=== PATIENT | female | born 1965 | race Caucasian/White ===

== ENCOUNTER 2017-05-12 20:18 | Emergency (ER) | payer BC ==
[2017-05-12] MEDS ORDERED: Sodium Chloride 0.9% 10 ML Syringe FLUSH PRN (22:01)
[2017-05-12] MEDS ORDERED: Sodium Chloride 0.9% 1,000 ML IV SCH (22:15)
--- NOTE | 2017-05-13 00:26 | EDM.PDOC ---
ED HPI GENERAL MEDICAL PROBLEM - General Chief Complaint: Fever Stated Complaint: FEVER HEART ISSUES CANCER PT Time Seen by Provider: 05/12/17 21:03 Source of Information: Reports: Patient, Other (Dr. Berman) History Limitations: Reports: No Limitations - History of Present Illness INITIAL COMMENTS - FREE TEXT/NARRATIVE: Dr. Berman called prior to arrival of this patient. She is a 52-year-old white female with history of metastatic carcinoid tumor. She is receiving treatment with some kind of injections and I didn't get the name of the infusion she is receiving. The patient's history is that for the past few hours she's had fever and shaking. She did get a flu shot at the end of December. So it's a little over 3 months since that an injection she denies vomiting but she's had lots of diarrhea and lots of gas. She feels like she may be dehydrated she denies cough or sore throat. She denies urinary symptoms she said she had full labs yesterday but was not having any symptoms then. She saw her oncologist yesterday. Today she second 3 Imodium tablets she says that since 7:30 PM she hasn't had anymore diarrhea. She did mention that she has had a lot of scans in the past I assume she mentioned CTs and MRIs and so forth she was worried about getting a chest x-ray and I told her that a regular chest x-ray does not carry much radiation exposure. This dictation is based on my personal notes taken at time of service. - Related Data Allergies Allergy/AdvReac Type Severity Reaction Status Date / Time azithromycin Allergy Hives Verified 05/12/17 21:20 benzonatate Allergy Hives Verified 05/12/17 21:20 [From Quinn Walker] lisinopril Allergy Cough Verified 05/12/17 21:22 Home Meds: Home Meds Hydrochlorothiazide 05/12/17 [History] Loratadine 05/12/17 [History] Losartan [Cozaar] 05/12/17 [History] Potassium Chloride 05/12/17 [History] Prochlorperazine Maleate [Compazine] 05/12/17 [History] Vit D3/Folic Acid/B2/B6/B12 [Folgard Tablet] 05/12/17 [History] Past Medical History Oncologic (Cancer) History: Reports: Other (See Below) - Past Surgical History Female Surgical History: Reports: Section, Tubal Ligation Social & Family History - Tobacco Use Smoking Status *Q: Never Smoker ED ROS GENERAL - Review of Systems Review Of Systems: Unable To Obtain (Review of systems was covered in the history of present illness) ED EXAM, SEPSIS - Physical Exam Exam: See Below Exam Limited By: No Limitations General Appearance: Alert, WD/WN, No Apparent Distress Eye Exam: Bilateral Eye: Normal Inspection Throat/Mouth: Normal Oropharynx Head: Atraumatic Neck: Normal Inspection Respiratory/Chest: Lungs Clear Cardiovascular: Normal Peripheral Pulses, Regular Rate, Rhythm GI/Abdominal Exam: Non-Tender Back: Normal Inspection Extremities: Normal Inspection Neurological: Alert, Oriented Psychiatric: Normal Affect Skin: Warm, Dry Course - Vital Signs Last Recorded V/S: Last Vital Signs Temp 37.9 C 05/12/17 21:32 Pulse 90 05/12/17 21:32 Resp 19 05/12/17 21:32 BP 133/78 05/12/17 21:32 Pulse Ox 97 05/12/17 21:32 - Orders/Labs/Meds Labs: Laboratory Tests 05/12/17 05/12/17 05/12/17 Range/Units 22:16 22:16 22:35 WBC 16.0 H (4.5-11.0) K/uL RBC 4.92 (3.30-5.50) M/uL Hgb 14.3 (12.0-15.0) g/dL Hct 41.9 (36.0-48.0) % MCV 85 (80-98) fL MCH 29 (27-31) pg MCHC 34 (32-36) % Plt Count 176 (150-400) K/uL Neut % (Auto) 92 H (36-66) % Lymph % (Auto) 3 L (24-44) % [place] % (Auto) 5 (2-6) % Eos % (Auto) 0 L (2-4) % Baso % (Auto) 0 (0-1) % Sodium 138 L (140-148) mmol/L Potassium 3.0 L (3.6-5.2) mmol/L Chloride 102 (100-108) mmol/L Carbon Dioxide 27 (21-32) mmol/L Anion Gap 12.0 (5.0-14.0) mmol/L BUN 16 (7-18) mg/dL Creatinine 1.2 H (0.6-1.0) mg/dL Est Cr Clr Drug Dosing 41.85 mL/min Estimated GFR (MDRD) 47 L (>60) Glucose 162 H (74-106) mg/dL Calcium 8.6 (8.5-10.1) mg/dL Urine Color Other Urine Appearance Cloudy Urine pH 5.0 (4.5-8.0) Ur Specific [place] 1.010 (1.008-1.030) Urine Protein Trace (NEGATIVE) mg/dL Urine Glucose (UA) Normal (NEGATIVE) mg/dL Urine Ketones Negative (NEGATIVE) mg/dL Urine Occult Blood Large (NEGATIVE) Urine Nitrite Negative (NEGATIVE) Urine Bilirubin Small (NEGATIVE) Urine Urobilinogen Normal (NORMAL) mg/dL Ur Leukocyte Esterase Negative (NEGATIVE) Urine RBC Packed H (0-5) Urine WBC 0-5 (0-5) Ur Epithelial Cells Few Amorphous Sediment Not seen Urine Bacteria Not seen Urine Mucus Not seen Meds: Medications Discontinued Medications Generic Name Dose Route Start Last Admin Trade Name Freq PRN Reason Stop Dose Admin Sodium Chloride 1,000 mls @ 999 mls/hr 05/12/17 22:15 05/12/17 22:29 Normal Saline IV 999 mls/hr ASDIRECTED DOUG Administration Sodium Chloride 10 ml 05/12/17 22:01 05/12/17 22:29 Saline Flush FLUSH 10 ml ASDIRECTED PRN Administration Keep Vein Open - Re-Assessments/Exams Free Text/Narrative Re-Assessment/Exam: 05/14/17 06:16 This patient received 1 L IV normal saline. Labs were reviewed with the patient. Chest x-ray showed no signs of infiltrate. The influenza test is negative and it was an antigen test. Patient stated that she doesn't feel like she has the flu since she's not having any kind of body aches or upper respiratory type symptoms. I mentioned this because the antigen test we did has a high false-negative rate and I would consider treating an immunocompromised person with Tamiflu regardless of the negative flu test. She pointed out that she is not receiving chemotherapy that the infusion is a different type of treatment. Again I don't have the name of the infusion she's receiving. Her white blood cell count is elevated but there is some left shift to it but I don' t see any bands. She's feeling much better at the time of discharge. She agrees that if she gets worse over the next 2448 hrs. that she will seek care.. 05/14/17 06:18 Departure - Departure Time of Disposition: 00:24 Disposition: Home, Self-Care 01 Condition: Fair Clinical Impression: Diarrhea, Carcinoid tumor - Discharge Information Instructions: Diarrhea, Adult Referrals: Beck Arambula MD [Primary Care Provider] - Forms: ED Department Discharge Additional Instructions: Continue clear liquids for the next 24 hours. Then slowly advanced back to your previous diet. If you feel like you're getting worse such as running a fever and body aches and so forth then you need to be seen right away again otherwise follow-up with your doctor as soon as possible preferably on Sunday
--- NOTE | 2017-05-14 10:11 | CR ---
Chest 2V FINDINGS: The heart and vascular structures are normal in appearance. No infiltrates or effusions are demonstrated. The skeletal structures are unremarkable. IMPRESSION: Negative exam.
== END 2017-05-13 00:38 | disposition home or self-care (01) ==
LOC: JP.ED 20:18
DX: R19.7 Diarrhea, unspecified (principal); C7B.00 Secondary carcinoid tumors, unspecified site; Z88.1 Allergy status to other antibiotic agents; Z88.8 Allergy status to other drugs, medicaments and biological substances
CPT/HCPCS: 36415; 71046; 80048; 81001; 85025; 87804; 96360; 99284; J7040; J7050; J7030